=== PATIENT | female | born 1960 | race Caucasian/White ===

== ENCOUNTER 2018-03-12 11:15 | Emergency (ER) | payer MEDICAID ==
[~2018-03-12] VITALS: Ht 157.5 cm; Wt 64.0 kg
[~2018-03-12 11:15] MED LIST: AMOX1TAB61 BC; DIAZ2TAB PO; DIAZ5TAB PO; ESCI10TA10 PO; ESCI20TA10 PO; HYDR12.58 PO; HYDR25TA6 PO; LORA-445 PO; OXYC-307 PO; PREMIDONE PO; PROM12.553 RC; ZOLP-413 PO
[2018-03-12] MEDS ORDERED: BUPIVACAINE/PF 0.5% ONE (12:10)
[2018-03-12] MEDS ORDERED: LIDOCAINE/PF 1%, 30ML ONE (12:10)
[2018-03-12] MEDS ORDERED: HYDROcodone/APAP 5/325 TABLET PO ONE (12:30)
[2018-03-12] MEDS ORDERED: ONDANSETRON ODT 4 MG PO ONE (12:30)
[2018-03-12] MEDS ORDERED: HYDROcodone/APAP 5/325 TABLET ONE (12:37)
[2018-03-12] MEDS ORDERED: ONDANSETRON ODT 4 MG ONE (12:37)
[2018-03-12 12:39] LABS: BASOPHILS # (AUTO) 0.03 x10^3/uL (0-0.1); BASOPHILS % (AUTO) 0 % (0-1); EOSINOPHILS # (AUTO) 0.07 x10^3/uL (0-0.4); EOSINOPHILS % (AUTO) 1 % (1-7); LYMPHOCYTES # (AUTO) 1.04 x10^3/uL (1-3.4); LYMPHOCYTES % (AUTO) 14 % (22-44); MD NO; MEAN CORPUSCULAR HEMOGLOBIN 29.3 pg (27.0-34.8); MEAN CORPUSCULAR HGB CONC 32.6 g/dL (32.4-35.8); MEAN CORPUSCULAR VOLUME 89.9 fL (80-100); MONOCYTES # (AUTO) 0.25 x10^3/uL (0.2-0.8); MONOCYTES % (AUTO) 3 % (2-9); NEUTROPHILS # (AUTO) 5.97 x10^3/uL (1.8-6.8); NEUTROPHILS % (AUTO) 81 % (42-75); PLATELET COUNT 435 x10^3/uL (130-400); RED BLOOD COUNT 4.26 x10^6/uL (3.82-5.3); RED CELL DISTRIBUTION WIDTH 14.7 % (9.6-15.2)
[2018-03-12 12:52] LABS: ALANINE AMINOTRANSFERASE 29 U/L (12-78); ALBUMIN 3.3 g/dL (3.4-5.0); ANION GAP 7 mmol/L (5-15); CALCIUM 8.1 mg/dL (8.5-10.1); CHLORIDE 116 mmol/L (98-107); CREATININE 0.69 mg/dL (0.55-1.02)
[2018-03-12 12:55] LABS: ALKALINE PHOSPHATASE 152 U/L (45-117); BILIRUBIN,TOTAL 0.2 mg/dL (0.2-1.0); TOTAL PROTEIN 7.3 g/dL (6.4-8.2)
[2018-03-12] MEDS ORDERED: OXYcodone/APAP 5/325MG TABLET PO ONE (13:30)
[2018-03-12] MEDS ORDERED: OXYcodone/APAP 5/325MG TABLET ONE (13:41)
[2018-03-12 16:24] VITALS: BP 145/96
== END 2018-03-12 16:28 | disposition home or self-care (01) ==
LOC: ED 16:22
DX: S06.0X0A Concussion without loss of consciousness, initial encounter (principal); S93.492A Sprain of other ligament of left ankle, initial encounter; S20.212A Contusion of left front wall of thorax, initial encounter; S60.222A Contusion of left hand, initial encounter; S05.12XA Contusion of eyeball and orbital tissues, left eye, initial encounter; R11.2 Nausea with vomiting, unspecified; W06.XXXA Fall from bed, initial encounter; Y93.89 Activity, other specified; Y92.89 Other specified places as the place of occurrence of the external cause; Y99.8 Other external cause status
CPT/HCPCS: 36415; 70450; 70486; 71046; 73110; 73130; 73610; 80053; 85025; 99285; J3490; Q0162